=== PATIENT | female | born 1965 | race Caucasian/White ===

== ENCOUNTER 2023-09-07 15:12 | Emergency (ER) | payer OTHER, SELFPAY ==
[2023-09-07 15:24] VITALS: BP 130/83; PULSE 90; RESP 18; TEMP 36.2; O2SAT 100; BMI 29.6
--- NOTE | 2023-09-07 15:29 | CRLHL7_ITS ---
For Patients: As a result of the Century Cures Act, medical imaging exams and procedure reports are released immediately into your electronic medical record. You may view this report before your referring provider. If you have questions, please contact your health care provider. INDICATION: Right lower extremity pain for 2 weeks with no known injury COMPARISON: None. TECHNIQUE: Chapman-scale, color, and duplex Doppler imaging of the examined veins. Compression and augmentation attempted where anatomically and clinically feasible. FINDINGS: Laterality: Right Examined veins: Common femoral, femoral, popliteal, peroneal, posterior tibial Greater saphenous The examined veins are patent with normal color Doppler flow and a normal venous waveform on duplex Doppler. Where possible, there is normal compression and normal augmentation of flow. The left common femoral vein was sampled for comparison and is normal. No waveform abnormalities to suggest central occlusion. IMPRESSION: No deep vein thrombosis in the right leg. Dictated by Tara Conti MD @ 09/07/2023 4:35:02 PM (Electronically Signed)
--- NOTE | 2023-09-07 16:29 | ED_ITS ---
HPI - General Adult General Chief complaint: Extremity Pain/Injury, Lower Stated complaint: Possible blood clot R leg Time Seen by Provider: 09/07/23 15:20 History of Present Illness HPI narrative: This 58-year-old female comes in reporting pain in the lateral aspect of her right lower leg. The pain is distinctly there when pressing on this area but otherwise absent. She is able to ambulate without any pain and does not have any pain when dorsiflexing her ankle and firing the muscles involved in this area. She does not has a history of blood clot but comes here wondering if this may be an explanation for her pain. She does not report any injury event or strenuous activity. She states that this pain is persistent at night and causing trouble with her sleep. She does have a history of rheumatoid arthritis and is taking Plaquenil and alexandr I will. Related Data Previous Rx's Medication Instructions Recorded cyclobenzaprine 10 mg tablet 10 mg PO TID #15 tabs 09/07/23 ketorolac 10 mg tablet 10 mg PO Q8H 5 days #15 tabs 09/07/23 methylprednisolone 4 mg tablets in See Rx Instructions PO .COMPLEX 09/07/23 a dose pack (Medrol (Kirby)) #21 ea Allergies Allergy/AdvReac Type Severity Reaction Status Date / Time No Known Drug Allergies Allergy Verified 09/07/23 15:26 Review of Systems Status of ROS: Reports: 10 or more systems reviewed and unremarkable except as noted in History and below Narrative: Constitutional: No fevers, no weight gain or loss. Eyes: No discharge. No vision changes. HENT: No congestion, no sore throat, no ear pain. Cardiovascular: No chest pain, no palpitations. Respiratory: No shortness of breath, no wheezes, no cough. Gastrointestinal: No abdominal pain, no vomiting, no diarrhea. Genitourinary: No dysuria, no hematuria. Musculoskeletal: Normal range of motion. Pain on the lateral aspect of her right lower leg as described above. Skin: No rashes, no pruritis. Neurological: No dizziness, weakness, sensory change, speech change. Endo/Heme/Allergies: No bruising or bleeding. No polydipsia. Pysch: no suicidality, no anxiety, no insomnia. All other systems reviewed and are negative. Exam Narrative: Exam Narrative: Constitutional: Well-developed, well-nourished, no acute distress. HEENT: Normocephalic, atraumatic. Neck: Normal range of motion. Nontender. Supple. Heart: Regular. No murmurs. Normal rate. Intact distal pulses. Lungs: Clear to auscultation. No chest discomfort. No wheezes, rhonchi, or rales. Abdomen: Normal bowel sounds. Nontender. No rebound tenderness. Genitalia: Deferred. Back: No midline tenderness. Normal range of motion. Extremities: Normal range of motion. No injury. Right lower extremity has tenderness when palpating along the lateral aspect between the knee and ankle. There is no sign of swelling or skin discoloration. She does not have any pain when dorsiflexing her ankle against resistance. Skin: Intact. No rash. Warm. No erythema or pallor. Neurologic: No altered sensation. No weakness. Alert and oriented. Psychiatric: No suicidality. No anxiety or depression. No insomnia. Nursing notes and vitals signs are reviewed. Const: Vital Signs, click to edit/add: Vital Signs - 24 hr 09/07/23 15:24 Temperature 97.2 F L Pulse Rate [Pulse Oximeter] 90 Respiratory Rate 18 Blood Pressure [Ri t Upper Arm] 130/83 Pulse Oximetry 100 Oxygen Delivery Me thod Room Air Course Vital Signs Vital signs: Initial Vital Signs Temperature 97.2 F L 09/07/23 15:24 Temperature Source Temporal Artery Scan 09/07/23 15:24 Pulse Rate 90 09/07/23 15:24 Respiratory Rate 18 09/07/23 15:24 Blood Pressure 130/83 09/07/23 15:24 Blood Pressure Mean 98 09/07/23 15:24 Pulse Oximetry 100 09/07/23 15:24 Oxygen Delivery Method Room Air 09/07/23 15:24 Vital Signs Temperature 97.2 F L 09/07/23 15:24 Pulse Rate 90 09/07/23 15:24 Respiratory Rate 18 09/07/23 15:24 Blood Pressure 130/83 09/07/23 15:24 Pulse Oximetry 100 09/07/23 15:24 Oxygen Delivery Method Room Air 09/07/23 15:24 Temperature 97.2 F L 09/07/23 15:24 Pulse Rate 90 09/07/23 15:24 Respiratory Rate 18 09/07/23 15:24 Blood Pressure 130/83 09/07/23 15:24 Pulse Oximetry 100 09/07/23 15:24 Oxygen Delivery Method Room Air 09/07/23 15:24 Medical Decision Making MDM Narrative Medical decision making narrative: This patient comes in with pain in her right lower extremity as described above. An ultrasound is obtained and is negative for deep venous thrombosis. This was reassuring to the patient. The patient did not have any injury event or overuse activities that explain this pain. She does have some low back pain but it does not radiate down her leg. The pain is isolated in her right lateral lower leg and is absent except when pressing in this area or at night when sleeping. She does have rheumatoid arthritis and is taking alexandr L and Plaquenil. She may have some flare-up of some rheumatologic condition. I did discuss other labs or imaging options which were declined in a process of shared decision making. The patient did received prescriptions for Toradol, Flexeril, and Medrol Dosepak. Discharge Plan Discharge Clinical Impression: Acute leg pain Patient Disposition: Home, Self-Care Condition: Stable Additional Instructions: Take medications as needed and indicated. Follow up with MD or return if worsening. Prescriptions: New cyclobenzaprine 10 mg tablet 10 mg PO TID Qty: 15 0RF ketorolac 10 mg tablet 10 mg PO Q8H 5 Days Qty: 15 0RF methylprednisolone [Medrol (Kirby)] 4 mg tablets,dose pack See Rx Instructions .ROUTE .COMPLEX Qty: 21 0RF Rx Instructions: orally per package directions Follow Up/Referrals: Andreia Pires MD [Primary Care Provider] - Stand Alone Forms: [employer] Info Instructions
== END 2023-09-07 16:57 | disposition home or self-care (01) ==
LOC: ED 16:54
PROVIDERS: Emergency Provider Emergency Medicine Emergency Medical Services; PCP Family Medicine
DX: M79.604 Pain in right leg (principal)
CPT/HCPCS: 93971; 99284

== ENCOUNTER 2025-06-25 06:49 | Emergency (ER) | payer OTHER, SELFPAY ==
--- OUTSIDE RECORDS SUMMARY | 2012-01-15 04:53 | XMS_ITS | Continuity of Care Document ---
Author Organization [facility] Address [address] [address] [place] [address] Phone Care Team Providers Care Pitch Gatherer Name Role Phone Unavailable Unavailable Unavailable Allergies, Adverse Reactions, Alerts Substance Reaction Status Criticality cefprozil swelling, rash Active No Informatio n Medications Medication Instructions Dosage Effective Dates (start - stop) Status Comments ranitidine 150 mg Tab take 1 tablet (150 MG) by ORAL route every day - Active Prevacid 15 mg Cap take 1 capsule (15MG ) by oral route every day before a meal - Active levothyroxine 112 mcg Tab take 1 tablet (112MCG) by oral route every day 112 MCG - Active Procedures Procedure Date Offic/outpt E&m [facility] Routine Serum Collection [id number] Advance Directives Directive Yes / No Effective Date File Name No Information Encounters Encounter Description Practice Location Reason(s) For Visit Diagnoses Date Provider Providers Copied on Encounter [facility], [address] [address], [place], [id number], tel:[phone] [employer] No Information 2 No Information Offic/outpt E&m [facility], [address] [address], [place], [id number], tel:[phone] [facility] Abdominal pain (chief complaint) Heartburn (chief complaint) RUQ PainAbn Blood Chemistry Nec 2 No Information Referring Provider: Laura Reyes MD M, [address] [place], [address]. tel:[phone] Family History Family Member Type Diagnosis Age At Onset First degree family history Problem (finding) No Family history of No history of Colon Polyps First degree family history Problem (finding) No history of Cancer, colon First degree family history Problem (finding) alcoholism Father Problem (finding) Cancer - stoma ch, throat, esophageal First degree family history Problem (finding) No history of Crohn's First degree family history Problem (finding) No history of Ulcerative Colitis Payers Payer name Insurance type Covered republican ID Authorkeya vivas(s) [employer] [id number] Social History Type Description Quantity Date Captured Comments Sex Female Smoking Status No Information Chief Complaint And Reason For Visit No Information Reason For Referral Reason For Referral No Information History Of Present Illness Encounter Date Complaint History Of Prese nt Illness No Information Functional Status Date Functional Assessmen t No Information Instructions Date Instruction Additional Infor mation No Information Assessments Type Assessment Date No Information Patient Care Teams Name Effective Dates (start - stop) Status Members No Information
[2025-06-25] VITALS (12 sets, daily range): BP systolic 108–124; BP diastolic 59–87; PULSE 64–87; RESP 16; TEMP 36.6; O2SAT 92–98; BMI 28.4
--- OUTSIDE RECORDS SUMMARY | 2025-06-25 06:51 | XMS_ITS | CCD ---
Author Name Interface, [id number] Address [address] [address] [facility] Address [address] [address] Reason for Visit Social History
--- OUTSIDE RECORDS SUMMARY | 2025-06-25 06:51 | XMS_ITS | Clinical Summary ---
Author Organization [facility] Address [address], [place] [address] Care Team Providers Care Audit Specialist Name Role Phone Unassigned, Provider Primary Care Provider Unava ilable Source Comments You are receiving this document as you are listed as the primary care provider,follow-up provider, or the patient has been referred to you for consultation.This is in compliance with the Medicare andSelect Medical [facility] Hospitalcaid EHR Incentive Program,which states Providers who transition their patient to another setting of careor provider of care or refers their patient to another provider of care shouldprovide summary care record for each transition of care or referral. [facility] Allergies Active Allergy Reactions Criticality Noted Date Comments Cefprozil Hives High 03/13/2014 Medications fenofibrate (TRICOR) 145 MG tablet Take 1 Tab by mouth daily at bedtime. Active gemfibrozil (LOPID) 600 MG tablet Take 600 mg by mouth daily. 06/18/2017 Active levothyroxine (SYNTHROID) 112 MCG tablet TK 1 T PO QD 0 01/19/2018 Active raNITIdine (ZANTAC) 150 MG tablet Take 150 mg by mouth. 10/20/2012 Active venlafaxine (EFFEXORXR) 37.5 MG 24 hour release capsule Take by mouth. 10/25/2017 Active Active Problems No known active problems Social History Tobacco Use Types Packs/Day Years Used Date Smoking Tobacco: Never Assessed Comments Unknown Sex and Gender Information Value Date Recorded Sex Assigned at Not on file Legal Sex Female 7:17 AM CDT Gender Identity Not on file Sexual Orientation Not on file Plan of Treatment Health Maintenance Due Date Last Done Comments Hep C Screening (Preventive Services) 1963 HIV Screening (Preventive Services) 1979 Adult Preventive Visit 1981 Cholesterol 2008 Cervical Cancer Screening Due 04/20/2012 04/19/2012 Pneumococcal Vaccine 50+ Yrs (1 of 1 - PCV) 2013 Colon Cancer Screening Plan Due 03/15/2014 03/14/2014 Mammogram 09/22/2014 09/22/2013 DTaP/Tdap/Td Vaccine (3 - Tdap) 02/19/2025 02/19/2015, 01/07/2007, 06/04/2005, Additional history exists COVID-19 Vaccine (3 - season) 2025 01/29/2021, 01/08/2021 Influenza Vaccine (#1) 2025 07/04/2020 RSV Vaccine (1 - 1-dose 75+ series) 2038 Zoster/Shingles Vaccine Completed 11/05/2020, 07/04 HepA Vaccine Aged Out No longer eligi ble based on patient's age to complete this topic HepB Vaccine Aged Out No longer eligi ble based on patient's age to complete this topic Hib Vaccine Aged Out No longer eligi ble based on patient's age to complete this topic IPV (Polio) Vaccine Aged Out No longe r eligible based on patient's age to complete this topic MCV4 Vaccine Aged Out No longer eligi ble based on patient's age to complete this topic Meningococcal B Vaccine Aged Out No l onger eligible based on patient's age to complete this topic Insurance FULLY INSURED FULLY INSURED Care Teams Audit Specialist Relationship Specialty Start Date End Date Unassigned, Provider [address] [place] [address] PCP - General 06/27/01
--- OUTSIDE RECORDS SUMMARY | 2025-06-25 06:51 | XMS_ITS | Clinical Summary ---
Author Organization [facility] Address [facility] [place] [address] Care Team Providers Care Microsoft Dynamics Developer Name Role Phone Gisela Chicas MD Unavailable Andreia Pires MD Primary Care Provider Allergies Active Allergy Reactions Criticality Noted Date Comments Cefprozil Rash,Edema,Hives High 03/16/2006 Medications calcium carbonate-vitamin D3, 600 mg-400 unit, 600 mg(1,500mg) -400 unit tablet Take 2 tablets by mouth 2 times daily with meals. 200 tablet 4 02/28/20 19 Active hydroxychloroquine (PLAQUENIL) 200 mg tablet Take 1 tablet by mouth 2 times daily. 0 06/15/20 19 Active etanercept (ENBREL SURECLICK) 50 mg/mL (1 mL) pen injector Inject 1 mL subcutaneous once weekly. 0 11/15/19 21 Active estradioL (VAGIFEM) 10 mcg tab vaginal tablet TAKE 1 TABLET IN THE VAGINA TWICE WEEKLY 09/26/20 21 Active fluocinonide 0.05 TOPICAL (LIDEX) 0.05 % external solutionIndication s:Seborrheic dermatitis Apply topically to affected area(s) 2 times daily. Use on the scalp as needed for itching. 60 mL 5 01/21/20 22 Active triamcinolone (ARISTOCORT; KENALOG) 0.1 % creamIndications:E czema, unspecified type Apply topically to affected area(s) two times daily. 45 g 2 07/23/20 22 Active fluocinonide 0.05% topical (LIDEX) 0.05 % creamIndications:E czema of hand Apply topically to affected area(s) two times daily. 30 g 1 10/14/19 24 Active famotidine (PEPCID) 40 mg tabletIndications: Gastroesophageal reflux disease, unspecified whether esophagitis present Take 1 Tablet (40 mg) by mouth at bedtime. 90 Tablet 3 10/11/19 25 Active levothyroxine (SYNTHROID) 112 mcg tabletIndications: Hypothyroidism, unspecified type Take 1 Tablet (112 mcg) by mouth once daily. 90 Tablet 3 10/11/19 25 Active rosuvastatin (CRESTOR) 10 mg tabletIndications: Hyperlipidemia, unspecified hyperlipidemia type Take 1 Tablet (10 mg) by mouth at bedtime. 90 Tablet 3 10/11/19 25 Active venlafaxine (EFFEXOR XR) 37.5 mg Extended-Release capsuleIndications :Hot flashes Take 1 Capsule (37.5 mg) by mouth once daily with a meal. TAKE WITH FOOD IF GI UPSET OCCURS. 90 Capsule 3 10/11/19 25 Active Hospital, Clinic, or Other Facility Administered Medication Ordered Dose Route Frequency Start Date End Date Status cyanocobalamin (VITAMIN B12) 1,000 mcg/mL injection 1,000 mcgIndications:B12 deficiency 1000 mcg IM Q 4 WEEKS (28 DAYS) 08/28/2024 07/29/2025 Active Active Problems Problem Noted Date Diagnosed Date Lichen sclerosus et atrophicus of the vulva 04/2021 Skin cancer 06/19/2020 Overview (01/22/2022): 01/20/2022, right lateral upper arm, superficial BCC, margins negative, Follow up 07/18. 07/02/21: Left medial suprabrow, nBCC - 09/08/2021 Dr. Abbey ELLIOTT 07/02/21: Left lateral canthus, superficial and nodular BCC - 09/08/2021 Dr. Abbey ELLIOTT Right Forehead, invasive SCC: Mohs 01/20/2021 Abbey 06/18/20, left jewish, nBCC: MOHS 07/23/2020 Abbey Rheumatoid arthritis involvi ng both hands with negative rheumatoid factor 08/26/2019 Esophageal dysmotility 07/29/2016 Avascular necrosis of bone of left hip 5 Overview (01/03/2016): Was actually transient osteoporosis. Hypothyroid 09/22/2013 Hepatic steatosis 11/29/2012 MRSA (methicillin resistant staph aureus) cultur e positive 11/28/2012 Overview (11/28/2012): Isolated from boil 10/2012 Lumbar facet arthropathy 10/20/2012 Dysthymic disorder 07/12/2012 T6-7 and T7-8 disk bulge. 07/11/2012 L5-S1 DDD 07/11/2012 Biliary dyskinesia 02/04/2012 Unspecified hypothyroidism 03/16/2007 Esophageal reflux 03/09/2007 Overview (01/14/2011): EGD 12/2010 normal Obesity, unspecified 12/29/2006 HISTORY OF LEFT GREATER THAN RIGHT LEG EDEMA Resolved Problems Problem Noted Date Diagnosed Date Resolved Date Fracture of coccyx 07/11/2012 3 Ingrowing nail 08/11/2007 01/13/2013 Abnormal maternal glucose to lerance, complicating , childbirth, or the puerperium, unspecified as to episode of care 12/29/2006 01/13/2013 Encounters Date Type Department Care Team Description 06/21/2025 8:15 AM CDT Nurse/Clinic Staff Only [facility] [address] [place] [address] Immunization/Injection (B-12 INJECTION ) 06/21/2025 Travel 05/21/2025 8:15 AM CDT Nurse/Clinic Staff Only [facility] [address] [place] [address] Immunization/Injection (B-12 INJECTION) 05/21/2025 Travel from Last 3 Months Immunizations Immunization Administration Dates Next Due COVID-19 vaccine ([employer] 30mcg/0.3mL) 12YO+ YINKA-SUCROSE PF MDV 02/27/2022 COVID-19 vaccine ([employer] 30mcg/0.3mL) PF MDMelva 10/05/2021,01/29/2021,01/08/2021 INFLUENZA, IIV3 PF (AGE >= 6 MO) 10/11/2024 Influenza, IIV4 07/01/2022,08/20/2021,07/04/2020 Influenza,CCIIV4 PRESERV FREE 07/08/2023 Pneumococcal Conj 20-valent (Prevnar 20) 025 Td (Age >=7 Years) 06/04/2005 Tdap 02/19/2015,01/07/2007 Zoster (Shingrix-RZV, recombinant) 11/05/2020, Family History Medical History Relation Name Comments Cancer Father stomach, throat and esophageal Hypertension Maternal Grandfather Cancer Other paternal cousin has stage 4 kidney cancer Cancer-breast No Family History Relation Name Status Comments Brother Alive Daughter Alive x2 Father (Age 62 yrs) cancer s Maternal Grandfather Maternal Grandmother Mother Alive Other Paternal Grandfather Paternal Grandmother Sister 1 Alive Sister 2 Alive Son Alive x1 Social History Tobacco Use Types Packs/Day Years Used Date Smoking Tobacco: Former Cigarettes 0.5 13.9 0 02/03/1982 - 12/27/1995 Smokeless Tobacco: Never Tobacco Cessation:Counseling Given: Not Answered Alcohol Use Standard Drinks/Week Comments Yes 0 (1 standard drink = 0.6 oz pure alcohol) about 1-3 drinks a couple times a month PHQ-2 Answer Date Recorded PHQ-2 TOTAL SCORE 0 10/11/2024 Social Connections Answer Date Recorded Do you often feel lonely or isolated from those around you? 0 10/11/2024 Alcohol Use Answer Date Recorded How often do you have a drink containing alcohol ? 2 02/27/2022 How many drinks containing a lcohol do you have on a typical day when you are drinking? 0 02/27/2022 How often do you have five or more drinks on one occasion? 0 02/27/2022 Financial Resource Strain Answer Date R ecorded Difficulty of Paying Living Expenses 3 10/11/2024 Difficulty of Paying Living Expenses Not on file 10/11/2024 Food Insecurity Answer Date Recorded Do you worry your food will run out before you are able to buy more? 1 10/11/2024 Transportation Needs Answer Date Record ed Does lack of transportation keep you from medica l appointments? 1 10/11/2024 Does lack of transportation keep you from work, meetings or getting things that you need? 1 10/11/2024 Housing Stability Answer Date Recorded What is your housing situation today? 1 10/11/2024 Utilities Answer Date Recorded Do you have trouble paying f or utilities (for example, heat, electricity, water, phone)? 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 file Not on file Not on f ile [employer]IEF [employer] Not on file Not on file Not on file Obstetrics History Para Term AB IAB SAB Ectopic Multiple Livin g Live Births 3 3 3 0 0 0 0 0 0 3 3 Date Outcome GA Total Labor Labor/2nd/3rd Weight Sex Type Anes PTL Genesis A1 A5 Name Clin 08/23 Term 38w 0d 19h 00m/ 4.24 kg (9 lb 5.6 oz) M Vag Living Walter 05/11 Term 40w 0d 15h 00m/ 3.7 kg (8 lb 2.6 oz) F Vag Living Alka 08/02 Term 38w 0d 20h 00m/ 4.05 kg (8 lb 15 oz) F Vag Living Kandice Last Filed Vital Signs Vital Sign Reading Time Taken Comments Blood Pressure 109/70 12/08/2024 9:11 AM CDT Pulse 87 12/08/2024 9:11 AM CDT Temperature 36.2 C (97.2 F) 02/27/2022 3:57 PM CDT Respiratory Rate 16 10/07/2019 10:5 8 AM MANAGER SALES SUPPORT Oxygen Saturation 97% 12/08/2024 9:11 AM CDT Inhaled Oxygen Concentration - - Weight 89.3 kg (196 lb 12.8 oz) 12/08/2024 9:11 AM CDT Height 168.9 cm (5' 6.5) 10/11/2024 2:37 PM MANAGER SALES SUPPORT Body Mass Index 31.29 10/11/2024 2:37 PM MANAGER SALES SUPPORT Plan of Treatment Upcoming Encounters Date Type Department Care Team (Late st Contact Info) Description 07/23/2025 8:15 AM CDT Nurse/Clinic Staff Only [facility] [address] [place] [address] 08/27/2025 8:15 AM MANAGER SALES SUPPORT Nurse/Clinic Staff Only [facility] [address] [place] [address] [address] Health Maintenance Due Date Last Done Comments RSV vaccine for adults or (1 - Risk 60-74 years 1-dose series) 2023 Colonoscopy through age 75 03/14/2024 03/14/2014, Tetanus booster 02/19/2025 02/19/2015, 12/26, 06/04/2005 COVID-19 vaccine series ( season) 2025 07/08/2023, 02/27/2022, 10/05/2021, Additional history exists Influenza Vaccine (#1) 2025 , 07/08/2023, 07/01/2022, Additional history exists BMI (ht and wt on same day) for age 18+ 10/11/2025 10/11/2024, 08/10/2022, 10/16/2021, Additional history exists Depression screening for age 12+ 10/11/2025 10/11/2024, 10/14/2023, 08/10/2022, Additional history exists Pap test for age 21-65 11/20/2025 , 11/20/2020, 01/03/2016, Additional history exists Mammogram for age 45-75 12/13/2025 12/14/19 25, 10/14/2023, 09/03/2022, Additional history exists Lipids for age 45-75 10/11/2029 10/11/2024, 10/14/2023, 09/23/2022, Additional history exists Hepatitis C screening for age 18-79 Completed 11/29/2012 Zoster (shingles) series for age 50+ Completed 11/05/2020, 07/04/2020 HIV for age 15-65 Completed 10/14/2023 Pneumococcal series for age 50+ Completed 10/11/2024 Hepatitis B series for 19+ Aged Out N o longer eligible based on patient's age to complete this topic Procedures Procedure Name Priority Date/Time Associated Diagnosis Comments XR MAMMO BILAT DIAGNOSTIC Routine 12/13/2024 2:17 PM CDT Breast lump on right side at 2 o'clock position LIPID PANEL W REFLEX MEASURED LDL Routine 10/11/2024 3:31 PM MANAGER SALES SUPPORT Hyperlipidemia, unspecified hyperlipidemia type ANTI HIV 1/2 Routine 10/14/2023 10:57 AM MANAGER SALES SUPPORT Screening for HIV (human immunodeficiency virus) BACKEND JAVA DEVELOPER THIN PREP PAP SCREEN IMAGED Routine 11/20/2020 5:40 PM MANAGER SALES SUPPORT Cervical cancer screening SCAN-COLONOSCOPY 03/14/2014 12:0 0 AM CDT ANTI HCV Routine 11/29/2012 4:50 PM MANAGER SALES SUPPORT Elevated ALT measurement Elevated AST (SGOT) from Last 3 Months or Most Recently Relevant to Health Maintenance Results * XR MAMMO BILAT DIAGNOSTIC (12/13/2024 2:17 PM CDT) Anatomical Region Laterality Modality BREASTS, Breast Left, Breast Right Bilateral Mammography 12/13/2024 2:38 PM CDT Impressions 12/13/2024 3:14 PM CDT Normal breast tissue. No evidence of malignancy. RECOMMENDATIONS: Routine screening mammography. BI-RADS Category 1: Negative Dictated by: Kishore Lambert MD @12/13/2024 2:38:47 PM /sp PATIENTS: You will also receive a letter with your examination results in an easy to read format. If you have questions about your results, please contact your referring provider. Narrative 12/13/2024 3:14 PM CDT As a result of the 21st Century Cures Act, medical imaging exams and procedure reports are released immediately into your electronic medical record. You may view this report before your referring provider. If you have questions, please contact your health care provider. BILATERAL BREAST MAMMOGRAM DIGITAL DIAGNOSTIC WITH COMPUTER-AIDED DETECTION AND TOMOSYNTHESIS 12/13/2024 RIGHT BREAST ULTRASOUND 12/13/2024 CLINICAL HISTORY: RIGHT breast lump. COMPARISON: 10/14/2023, 09/03/2022, 08/31/2022, 08/19/2021. TECHNIQUE: Digital BILATERAL mammogram in four projections with computer-aided detection. Tomosynthesis was used in this interpretation. Real-time ultrasound imaging of RIGHT breast with imaging documentation. BREAST COMPOSITION: There are scattered areas of fibroglandular density. FINDINGS: 3D CC/MLO BILATERAL mammogram images submitted. No suspicious mass or architectural distortion. No suspicious calcifications or adenopathy. Targeted RIGHT breast ultrasound performed at 3 o'clock, 4 cm from the nipple. Normal breast tissue is present. No fibrocystic change or mass. us Santy Garber MD MAMMO Final Result * (ABNORMAL) LIPID PANEL W REFLEX MEASURED LDL (10/11/2024 3:31 PM MANAGER SALES SUPPORT) Pathologist [facility] CHOLESTEROL, TOTAL 121 <200 mg/dL [employer] [facility] [employer] [facility] HDL CHOLESTEROL 35(L) > OR = 50 mg/dL [employer] TRIGLYCERIDES 217(H) <150 mg/dL [facility] [employer] Comment: If a non-fasting specimen was collected, consider repeat triglyceride testing on a fasting specimen if clinically indicated. Grace et al. J. of Clin. Lipidol. 2015;9:129-169. LDL-CHOLESTEROL 57 mg/dL (calc) [employer] Comment: Reference range: <100 Desirable range <100 mg/dL for primary prevention; <70 mg/dL for patients with CHD or diabetic patients with > or = 2 CHD risk factors. LDL-C is now calculated using the Rober-Tania calculation, which is a validated novel method providing better accuracy than the Friedewald equation in the estimation of LDL-C. Rober GIBSON et al. GINNY. 2013;310(19): 5195-3305 (http://education.OnKure/faq/TXB213) CHOL/HDLC RATIO 3.5 <5.0 (calc) [facility] NON HDL CHOLESTEROL 86 <130 mg/dL (calc) [employer] [facility] [employer] [facility] Comment: For patients with diabetes plus 1 major ASCVD risk factor, treating to a non-HDL-C goal of <100 mg/dL (LDL-C of <70 mg/dL) is considered a therapeutic option. Blood BLOOD SPECIMEN / Unknown 10/11/2024 3:31 PM MANAGER SALES SUPPORT 10/11/2024 3:31 PM MANAGER SALES SUPPORT Andreia Pires MD CHEMISTRY Final R esult Performing Organization Address City/[facility]/ZIP Co de Phone Number [employer] [facility] [place] [address] [place] [address], [facility] [address] [place] [address] * ANTI HIV 1/2 [17095.0] (10/14/2023 10:57 AM MANAGER SALES SUPPORT) HIV-1/HIV-2 SCREEN Non-Reacti ve Non-Reacti ve 10/14/2023 10:35 PM MANAGER SALES SUPPORT [facility] Comment:HIV-1 p24 and HIV-1/ HIV-2 Ab Not Detected. Blood BLOOD SPECIMEN / Unknown Venipuncture / Unknown 10/14/2023 10:57 AM MANAGER SALES SUPPORT 10/14/2023 10:57 AM MANAGER SALES SUPPORT Andreia Pires MD SEND OUTS Final R esult Performing Organization Address City/[facility]/ZIP Co de Phone Number [facility] [address] [place] [address], [place] * BACKEND JAVA DEVELOPER THIN PREP PAP SCREEN IMAGED (11/20/2020 5:40 PM MANAGER SALES SUPPORT) Case Report Gynecologic Cytology Report Case: [id number] Authorizing Provider: Andreia Pires MD Collected: 11/20/2020 1740 Ordering Location: [facility] Received: 11/20/2020 1758 Clinic First Screen: Jonny Weathers Pathologist: Loreta Augustine MD Specimen: BACKEND JAVA DEVELOPER ThinPrep Vial Screening, Cervical 11/29/2020 3:22 PM MANAGER SALES SUPPORT [facility] INTERPRETATION/ RESULT NEGATIVE FOR INTRAEPITHELIAL LESION OR MALIGNANCY (NIL) (none) 11/29/2020 3:22 PM MANAGER SALES SUPPORT [facility] at 1522 MANAGER SALES SUPPORT OTHER NON-NEOPLASTIC FINDING(S) Reactive cellular changes associated with inflammation/repa ir 11/29/2020 3:22 PM MANAGER SALES SUPPORT [facility] SPECIMEN ADEQUACY Satisfactory for evaluation Endocervical cells cannot be evaluated due to severe atrophy 11/29/2020 3:22 PM MANAGER SALES SUPPORT [facility] HPV REQUEST HPV and PAP 11/29/2020 3:22 PM MANAGER SALES SUPPORT [facility] Date of LMP 2013 11/29/2020 3:22 PM MANAGER SALES SUPPORT [facility] Last Pap Date 01/03/16 11/29/2020 3:22 PM MANAGER SALES SUPPORT [facility] Last Pap Result NIL 3:22 PM MANAGER SALES SUPPORT [facility] Abnormal Pap or Deshler Bx in last 5 years No 11/29/2020 3:22 PM MANAGER SALES SUPPORT [facility] Menstrual Status Postmenopausal 11/29/2020 3:22 PM MANAGER SALES SUPPORT [facility] Deshler Bx Done Today No 11/29/2020 3:22 PM MANAGER SALES SUPPORT [facility] Additional Information None given 11/29/2020 3:22 PM MANAGER SALES SUPPORT [facility] Comment: Cytology is screened at [facility] - [address], [place] [address] and [facility] - [address], [place] [address] and [facility] - [address] [place] [address] Interpreted at [facility] - [address], [place] [address] Automated Review Successful 11/29/2020 3:22 PM MANAGER SALES SUPPORT [facility] Comment:Specimen processed s uccessfully by automated vmware systems administrator device, ThinPrep Imaging System, [facility] ANCILLARY TESTING BACKEND JAVA DEVELOPER HPV Ordered, Please see separate report 11/29/2020 3:22 PM MANAGER SALES SUPPORT [facility] Note The pap test is a screening technique, not a diagnostic procedure. It is used primarily to screen for squamous cancers and precursor lesions. Published studies have shown that it is subject to both false negative and false positive results. The pap test should not be used as the sole means to diagnose or exclude pre-malignant and malignant lesions. 11/29/2020 3:22 PM MANAGER SALES SUPPORT [facility] Other (Cervical) Non-Blood / Unknown 11/20/2020 5:40 PM MANAGER SALES SUPPORT 11/20/2020 5:58 PM MANAGER SALES SUPPORT us Andreia Pires MD PATHOLOGY/CYTOLOGY Nasima l Result [facility] [address] [place] [address], [place] * SCAN-COLONOSCOPY (03/14/2014 12:00 AM CDT) Narrative 03/14/2014 12:00 AM CDT Procedure Note Scanner - 03/14/2014 12:00 AM CDT us Scanner OTHER Final Result * ANTI HCV (11/29/2012 4:50 PM MANAGER SALES SUPPORT) ANTI HCV Non-reacti ve [facility] Blood specimen (specimen) BLOOD SPECIMEN / Unknown 11/29/2012 4:50 PM MANAGER SALES SUPPORT 11/29/2012 4:49 PM MANAGER SALES SUPPORT us India Fernandez MD SEND OUTS Final Result [facility] INTERNAL ZIP [id number] [place] [address] from Last 3 Months or Most Recently Relevant to Health Maintenance Insurance [facility] [employer] [facility] [employer] Advance Directives * Full Code (Latest Code Status on File) Date Activated Date Inactivated Comments 02/04/2012 11:17 AM 02/04/2012 9:56 PM Care Teams Microsoft Dynamics Developer Relationship Specialty Start Date End Date Andreia Pires MD [address] [facility] [address] [place] [address] PCP - General Family Practice 11/02/13 Gisela Chicas MD [address] [facility] [address] [place] [address] Gastroenterology Gastroenterology 01/04/12
[2025-06-25 07:07] LABS: Appearance Urine Clear (Clear)
--- NOTE | 2025-06-25 07:22 | ED.GENADULT ---
HPI - General Adult General Chief complaint: Abdominal Pain <Nida Roberts MD - Last Filed: 06/26/25 00:02> Stated complaint: abdominal pain <Nida Roberts MD - Last Filed: 06/26/25 00:02> Time Seen by Provider: 06/25/25 06:56 <Nida Roberts MD - Last Filed: 06/26/25 00:02> Source: patient <Nida Roberts MD - Last Filed: 06/26/25 00:02> Mode of arrival: ambulatory <Nida Roberts MD - Last Filed: 06/26/25 00:02> Limitations: no limitations <Nida Roberts MD - Last Filed: 06/26/25 00:02> History of Present Illness HPI narrative: 60-year-old female presents with 24 hours of abdominal pain in the right lower quadrant that does radiate to the right flank area somewhat. No injury or trauma. Normal bowel movements, last yesterday afternoon. Took some ibuprofen, 600 mg yesterday afternoon with some temporary relief. No prior history of similar symptoms. She has had a prior cholecystectomy and does have a history of pelvic congestion syndrome which she has undergone blood vessel coiling for in the past, not recent. No history of DVT or PE. No dysuria, no history of kidney stones but does have a family history of them. No fever. No nausea or vomiting. No bloody stools. Not anticoagulated but she is immunocompromised due to treatment for rheumatoid arthritis. No history of bowel obstructions or pancreatitis. No recent alcohol ingestion. She does not smoke but does vape tobacco. No pelvic pain or gynecological changes. No hematuria noted. Past medical history is most notable for rheumatoid arthritis and hyperlipidemia. Home meds are levothyroxine rosuvastatin venlafaxine Enbrel Plaquenil and famotidine. Allergies to cefprozil. ROS is notable for the GI symptoms only, otherwise denies times 12 systems. <Nida Roberts MD - Last Filed: 06/26/25 00:02> Related Data Home medications: Home Medications ?Medication ?Instructions ?Recorded ?Confirmed famotidine 40 mg tablet 40 mg PO DAILY 06/25/25 06/25/25 hydroxychloroquine 200 mg tablet 200 mg PO Q12H 06/25/25 06/25/25 leflunomide 20 mg tablet 20 mg PO DAILY 06/25/25 06/25/25 levothyroxine 112 mcg tablet 112 mcg PO DAILY 06/25/25 06/25/25 rosuvastatin 10 mg tablet 10 mg PO QPM 06/25/25 06/25/25 venlafaxine 37.5 mg 37.5 mg PO DAILY 06/25/25 06/25/25 capsule,extended release 24 hr <Nida Roberts MD - Last Filed: 06/26/25 00:02> Allergies/adverse reactions: Allergies Allergy/AdvReac Type Severity Reaction Status Date / Time cefprozil (From Cefzil) Allergy Intermediate Rash Verified 06/25/25 07:03 <Nida Roberts MD - Last Filed: 06/26/25 00:02> PFSH PFSH Social History: Social History Smoking Status: Unknown if ever smoked Non-prescribed substance use: denies use <Nida Roberts MD - Last Filed: 06/26/25 00:02> Exam Const: Vital Signs, click to edit/add: Vital Signs - 24 hr 06/25/25 06:57 06/25/25 07:55 06/25/25 07:56 Temperature 97.8 F Pulse Rate 69 64 Pulse Rate [Pulse Oximeter] 85 Respiratory Rate 16 Blood Pressure 111/63 Blood Pressure [Ri ght Upper Arm] 124/87 Pulse Oximetry 98 98 [facility] 06/25/25 08:00 06/25/25 08:02 06/25/25 08:20 Temperature Pulse Rate 64 71 87 Pulse Rate [Pulse Oximeter] Respiratory Rate Blood Pressure 111/62 Blood Pressure [Ri ght Upper Arm] Pulse Oximetry 96 93 96 [facility] 06/25/25 08:21 06/25/25 08:30 06/25/25 08:32 Temperature Pulse Rate 70 68 64 Pulse Rate [Pulse Oximeter] Respiratory Rate Blood Pressure 112/65 Blood Pressure [Ri ght Upper Arm] Pulse Oximetry 98 95 96 [facility] 06/25/25 08:33 06/25/25 08:45 06/25/25 08:46 Temperature Pulse Rate 66 64 69 Pulse Rate [Pulse Oximeter] Respiratory Rate Blood Pressure 108/59 L Blood Pressure [Ri ght Upper Arm] Pulse Oximetry 94 95 92 Oxygen Delivery Me thod <Nida Roberts MD - Last Filed: 06/26/25 00:02> Vital Signs, click to edit/add: Vital Signs - 24 hr 06/25/25 06:57 06/25/25 07:55 06/25/25 07:56 Temperature 97.8 F Pulse Rate 69 64 Pulse Rate [Pulse Oximeter] 85 Respiratory Rate 16 Blood Pressure 111/63 Blood Pressure [Ri ght Upper Arm] 124/87 Pulse Oximetry 98 98 97 Oxygen Delivery Me thod Room Air 06/25/25 08:00 06/25/25 08:02 06/25/25 08:20 Temperature Pulse Rate 64 71 87 Pulse Rate [Pulse Oximeter] Respiratory Rate Blood Pressure 111/62 Blood Pressure [Ri ght Upper Arm] Pulse Oximetry 96 93 96 Oxygen Delivery Me thod 06/25/25 08:21 06/25/25 08:30 06/25/25 08:32 Temperature Pulse Rate 70 68 64 Pulse Rate [Pulse Oximeter] Respiratory Rate Blood Pressure 112/65 Blood Pressure [Ri ght Upper Arm] Pulse Oximetry 98 95 96 Oxygen Delivery Me thod 06/25/25 08:33 06/25/25 08:45 06/25/25 08:46 Temperature Pulse Rate 66 64 69 Pulse Rate [Pulse Oximeter] Respiratory Rate Blood Pressure 108/59 L Blood Pressure [Ri ght Upper Arm] Pulse Oximetry 94 95 92 Oxygen Delivery Me thod <Adia Wagner MD - Last Filed: 06/25/25 08:48> Documenting provider has reviewed patient's vital signs: yes <Nida Roberts MD - Last Filed: 06/26/25 00:02> Common normals: no apparent distress <Nida Roberts MD - Last Filed: 06/26/25 00:02> General appearance: cooperative and well kempt <Nida Roberts MD - Last Filed: 06/26/25 00:02> HENMT: Common normals: normocephalic, moist oral mucous membranes and oropharynx normal <MD Felisa Sandoval Last Filed: 06/26/25 00:02> Head and scalp: normocephalic <MD Felisa Sandoval Last Filed: 06/26/25 00:02> Face and sinus: normal facial exam <MD Felisa Sandoval Last Filed: 06/26/25 00:02> Throat: posterior oropharynx normal <MD Felisa Sandoval Last Filed: 06/26/25 00:02> Eye: Common normals: conjunctivae normal <MD Felisa Sandoval Last Filed: 06/26/25 00:02> General eye: normal appearance of both eyes <MD Felisa Sandoval Last Filed: 06/26/25 00:02> Conjunctiva: conjunctiva(e) normal <MD Felisa Sandoval Last Filed: 06/26/25 00:02> Neck & C-Spine: Common normals: full ROM <MD Felisa Sandoval Last Filed: 06/26/25 00:02> General: normal visual inspection <MD Felisa Sandoval Last Filed: 06/26/25 00:02> Resp: Common normals: normal respiratory effort, no use of accessory muscles and clear to auscultation bilaterally <MD Felisa Sandoval Last Filed: 06/26/25 00:02> Effort & inspection: able to speak in complete sentences <MD Felisa Sandoval Last Filed: 06/26/25 00:02> Auscultation: clear to auscultation bilaterally <MD Felisa Sandoval Last Filed: 06/26/25 00:02> Cardio: Common normals: regular rate, regular rhythm, S1 normal heart sound, S2 normal heart sound and no murmurs <MD Felisa Sandoval Last Filed: 06/26/25 00:02> Rate: regular rate <MD Felisa Sandoval Last Filed: 06/26/25 00:02> Rhythm: regular rhythm <MD Felisa Sandoval Last Filed: 06/26/25 00:02> Heart sounds: S1 normal and S2 normal <MD Felisa Sandoval Last Filed: 06/26/25 00:02> GI: Common normals: Normal to inspection, nondistended, normoactive bowel sounds present, soft to palpation, no hepatosplenomegaly and no masses <MD Felisa Sandoval Last Filed: 06/26/25 00:02> Palpation: soft and no hepatosplenomegaly <MD Felisa Sandoval Last Filed: 06/26/25 00:02> Other: Tender to palpation of the right lower quadrant. No rebound tenderness or guarding. No obvious mass. <MD Felisa Sandoval Last Filed: 06/26/25 00:02> : Common normals: no CVA tenderness <MD Felisa Sandoval Last Filed: 06/26/25 00:02> Bladder/kidney exam: no CVA tenderness <MD Felisa Sandoval Last Filed: 06/26/25 00:02> Back & Pelvis: Common normals: no CVA tenderness <MD Felisa Sandoval Last Filed: 06/26/25 00:02> Extremity: Common normals: normal to inspection, normal capillary refill and no pedal edema <MD Felisa Sandoval Last Filed: 06/26/25 00:02> Neuro: Speech: speech normal <MD Felisa Sandoval Last Filed: 06/26/25 00:02> Motor exam: strength 5/5 throughout <MD Felisa Sandoval Last Filed: 06/26/25 00:02> Psych: Appearance: well kempt <MD Felisa Sandoval Last Filed: 06/26/25 00:02> Attitude: engaged <MD Felisa Sandoval Last Filed: 06/26/25 00:02> Activity/motor behavior: appropriate eye contact <MD Felisa Sandoval Last Filed: 06/26/25 00:02> Attention/concentration: attention grossly intact <MD Felisa Sandoval Last Filed: 06/26/25 00:02> Memory/cognition: memory grossly intact <Nida Roberts MD - Last Filed: 06/26/25 00:02> Insight: insight good <Nida Roberts MD - Last Filed: 06/26/25 00:02> Judgement: judgment good <Nida Roberts MD - Last Filed: 06/26/25 00:02> Skin: Common normals: no rashes or lesions noted <Nida Roberts MD - Last Filed: 06/26/25 00:02> General skin exam: no rashes or lesions noted <Nida Roberts MD - Last Filed: 06/26/25 00:02> Course Course ED Course: 4-year-old female with right lower quadrant abdominal pain. Differential diagnosis including appendicitis, ureterolithiasis, ovarian cyst, torsion, pelvic infection, ischemic bowel, colitis, musculoskeletal etiology, pancreatitis, pyelonephritis, amongst many others. Will start with a urinalysis. If this contains blood, would be much more suspicious for kidney stone. Would then give Toradol and obtain a CT without IV contrast. If negative for blood, will give IV Dilaudid and Zofran, obtain CT of abdomen and pelvis with contrast. Anticipate handing over care to incoming day shift partner. <Nida Roberts MD - Last Filed: 06/26/25 00:02> Reevaluation(s) Reevaluation #1: I was asked to follow-up on the results of the workup for this patient. The her lab work was entirely unremarkable. Abdominal CT scan did not show any significant abnormalities. Appendix not visualized however no evidence of stranding or other evidence of inflammation noted. Patient does have a very large amount of colonic fecal burden of the ascending colon consistent with the location of her discomfort. <Adia Wagner MD - Last Filed: 06/25/25 08:48> Vital Signs Vital signs: Initial Vital Signs Temperature 97.8 F 06/25/25 06:57 Temperature Source Temporal Artery Scan 06/25/25 06:57 Pulse Rate 85 06/25/25 06:57 Respiratory Rate 16 06/25/25 06:57 Blood Pressure 124/87 06/25/25 06:57 Blood Pressure Mean 99 06/25/25 06:57 Blood Pressure Position Sitting 06/25/25 06:57 Pulse Oximetry 98 06/25/25 06:57 Oxygen Delivery Method Room Air 06/25/25 06:57 Vital Signs Temperature 97.8 F 06/25/25 06:57 Pulse Rate 85 06/25/25 06:57 Respiratory Rate 16 06/25/25 06:57 Blood Pressure 124/87 06/25/25 06:57 Pulse Oximetry 98 06/25/25 06:57 Oxygen Delivery Method Room Air 06/25/25 06:57 Temperature 97.8 F 06/25/25 06:57 Pulse Rate 69 06/25/25 08:46 Respiratory Rate 16 06/25/25 06:57 Blood Pressure 108/59 L 06/25/25 08:46 Pulse Oximetry 92 06/25/25 08:46 Oxygen Delivery Method Room Air 06/25/25 06:57 <Nida Roberts MD - Last Filed: 06/26/25 00:02> Initial Vital Signs Temperature 97.8 F 06/25/25 06:57 Temperature Source Temporal Artery Scan 06/25/25 06:57 Pulse Rate 85 06/25/25 06:57 Respiratory Rate 16 06/25/25 06:57 Blood Pressure 124/87 06/25/25 06:57 Blood Pressure Mean 99 06/25/25 06:57 Blood Pressure Position Sitting 06/25/25 06:57 Pulse Oximetry 98 06/25/25 06:57 Oxygen Delivery Method Room Air 06/25/25 06:57 Vital Signs Temperature 97.8 F 06/25/25 06:57 Pulse Rate 85 06/25/25 06:57 Respiratory Rate 16 06/25/25 06:57 Blood Pressure 124/87 06/25/25 06:57 Pulse Oximetry 98 06/25/25 06:57 Oxygen Delivery Method Room Air 06/25/25 06:57 Temperature 97.8 F 06/25/25 06:57 Pulse Rate 69 06/25/25 08:46 Respiratory Rate 16 06/25/25 06:57 Blood Pressure 108/59 L 06/25/25 08:46 Pulse Oximetry 92 06/25/25 08:46 Oxygen Delivery Method Room Air 06/25/25 06:57 <Adia Wagner MD - Last Filed: 06/25/25 08:48> Medications Administered Medications: Discontinued Medications Generic Name Dose Route Start Last Admin Trade Name Freq PRN Reason Stop Dose Admin Hydromorphone HCl 0.5 mg 06/25/25 07:33 06/25/25 07:51 Hydromorphone 0.5 Mg/0.5 Ml Inj IVP 06/25/25 07:34 0.5 mg ONCE ONE Administration Ondansetron HCl 4 mg 06/25/25 07:33 06/25/25 07:49 Ondansetron 2 Mg/Ml Inj IVP 06/25/25 07:34 4 mg ONCE ONE Administration <Nida Roberts MD - Last Filed: 06/26/25 00:02> Discontinued Medications Generic Name Dose Route Start Last Admin Trade Name Freq PRN Reason Stop Dose Admin Hydromorphone HCl 0.5 mg 06/25/25 07:33 06/25/25 07:51 Hydromorphone 0.5 Mg/0.5 Ml Inj IVP 06/25/25 07:34 0.5 mg ONCE ONE Administration Ondansetron HCl 4 mg 06/25/25 07:33 06/25/25 07:49 Ondansetron 2 Mg/Ml Inj IVP 06/25/25 07:34 4 mg ONCE ONE Administration <Adia Wagner MD - Last Filed: 06/25/25 08:48> Medical Decision Making MDM Narrative Medical decision making narrative: 60-year-old female with right lower quadrant abdominal pain. Does appear that the patient is indeed constipated with a large colonic fecal burden. Workup otherwise unremarkable. She does have a simple cysts of the left ovary which does not correspond to her area of discomfort. At this time recommend treatment for constipation including daily Colace and MiraLax. Follow-up with primary care as needed. <Adia Wagner MD - Last Filed: 06/25/25 08:48> Lab Data Lab results reviewed: Yes I reviewed the patient's lab results <Adia Wagner MD - Last Filed: 06/25/25 08:48> Labs: Lab Results 06/25/25 06/25/25 Range/Units 06:50 07:20 WBC 5.18 (4.50-11.00) K/uL RBC 4.17 (4.00-5.20) m/uL Hgb 12.8 (12.0-16.0) gm/dL Hct 38.8 (33.0-51.0) % MCV 93 (80-100) fL MCH 31 (26-34) pg MCHC 33 (32-36) gm/dL RDW Coeff of Jacki 11.7 (11.5-15.5) % Plt Count 175 (140-440) K/uL Neut % (Auto) 56.4 (42.0-72.0) % Lymph % (Auto) 27.2 (20-44) % [place] % (Auto) 11.2 H (0.0-11.0) % Eos % (Auto) 4.2 (0.0-7.0) % Baso % (Auto) 0.8 (0.0-3.0) % Neut # (Auto) 2.92 (1.7-7.0) K/uL Lymph # (Auto) 1.41 (0.90-2.90) K/uL [place] # (Auto) 0.60 (0.00-0.90) K/UL Eos # (Auto) 0.22 (0.00-0.50) K/uL Baso # (Auto) 0.04 (0.00-0.30) K/uL Abs Immat Gran (auto) 0.01 (0.00-0.30) K/uL Imm/Tot Granulo (auto) 0.2 % Sodium 139 (135-149) mmol/L Potassium 4.4 (3.6-5.1) mmol/L Chloride 106 (96-114) mmol/L Carbon Dioxide 24 (20-32) mmol/L Anion Gap 9 (7-15) mEq/L BUN 13 (7-30) mg/dL Creatinine 0.8 (0.5-1.5) mg/dL Estimated Creat Clear 58.84 Estimated GFR 83 ml/min Glucose 114 (60-115) mg/dL Lactate 1.3 (0.5-1.9) mmol/L Calcium 9.4 (8.4-10.6) mg/dL Total Bilirubin 0.3 (0.1-1.5) mg/dL AST 30 (12-35) U/L ALT 27 (4-35) U/L Alkaline Phosphatase 59 (40-150) U/L C-Reactive Protein < 0.5 L (0.5-1.0) mg/dL Total Protein 6.8 (6.0-8.3) g/dL Albumin 4.2 (3.3-5.0) g/dL Lipase 116 (23-300) U/L Urine Color Yellow (Yellow) Urine Appearance Clear (Clear) Urine pH 6.0 (5.0-8.5) Ur Specific [place] >= 1.030 (1.000-1.030) Urine Protein Trace A (Negative) Urine Glucose (UA) Negative (Negative) Urine Ketones Negative (Negative) Urine Blood Negative (Negative) Urine Nitrite Negative (Negative) Urine Bilirubin Negative (Negative) Urine Urobilinogen 0.2 (0.2-1.0) Ur Leukocyte Esterase 1+ A (Negative) Urine RBC 0-2 (0-2) Urine WBC 5-10 A (0-5) Ur Squamous Epith Cells Moderate A (None-Few) Urine Bacteria Moderate A (None) Urine Mucus Few A (None) <Nida Roberts MD - Last Filed: 06/26/25 00:02> Lab Results 06/25/25 06/25/25 Range/Units 06:50 07:20 WBC 5.18 (4.50-11.00) K/uL RBC 4.17 (4.00-5.20) m/uL Hgb 12.8 (12.0-16.0) gm/dL Hct 38.8 (33.0-51.0) % MCV 93 (80-100) fL MCH 31 (26-34) pg MCHC 33 (32-36) gm/dL RDW Coeff of Jacki 11.7 (11.5-15.5) % Plt Count 175 (140-440) K/uL Neut % (Auto) 56.4 (42.0-72.0) % Lymph % (Auto) 27.2 (20-44) % [place] % (Auto) 11.2 H (0.0-11.0) % Eos % (Auto) 4.2 (0.0-7.0) % Baso % (Auto) 0.8 (0.0-3.0) % Neut # (Auto) 2.92 (1.7-7.0) K/uL Lymph # (Auto) 1.41 (0.90-2.90) K/uL [place] # (Auto) 0.60 (0.00-0.90) K/UL Eos # (Auto) 0.22 (0.00-0.50) K/uL Baso # (Auto) 0.04 (0.00-0.30) K/uL Abs Immat Gran (auto) 0.01 (0.00-0.30) K/uL Imm/Tot Granulo (auto) 0.2 % Sodium 139 (135-149) mmol/L Potassium 4.4 (3.6-5.1) mmol/L Chloride 106 (96-114) mmol/L Carbon Dioxide 24 (20-32) mmol/L Anion Gap 9 (7-15) mEq/L BUN 13 (7-30) mg/dL Creatinine 0.8 (0.5-1.5) mg/dL Estimated Creat Clear 58.84 Estimated GFR 83 ml/min Glucose 114 (60-115) mg/dL Lactate 1.3 (0.5-1.9) mmol/L Calcium 9.4 (8.4-10.6) mg/dL Total Bilirubin 0.3 (0.1-1.5) mg/dL AST 30 (12-35) U/L ALT 27 (4-35) U/L Alkaline Phosphatase 59 (40-150) U/L C-Reactive Protein < 0.5 L (0.5-1.0) mg/dL Total Protein 6.8 (6.0-8.3) g/dL Albumin 4.2 (3.3-5.0) g/dL Lipase 116 (23-300) U/L Urine Color Yellow (Yellow) Urine Appearance Clear (Clear) Urine pH 6.0 (5.0-8.5) Ur Specific [place] >= 1.030 (1.000-1.030) Urine Protein Trace A (Negative) Urine Glucose (UA) Negative (Negative) Urine Ketones Negative (Negative) Urine Blood Negative (Negative) Urine Nitrite Negative (Negative) Urine Bilirubin Negative (Negative) Urine Urobilinogen 0.2 (0.2-1.0) Ur Leukocyte Esterase 1+ A (Negative) Urine RBC 0-2 (0-2) Urine WBC 5-10 A (0-5) Ur Squamous Epith Cells Moderate A (None-Few) Urine Bacteria Moderate A (None) Urine Mucus Few A (None) <Adia Wagner MD - Last Filed: 06/25/25 08:48> Imaging Data CT scan - abdomen: Attestation: I have reviewed the pertinent imaging results. <Adia Wagner MD - Last Filed: 06/25/25 08:48> Radiologist's impression: TECHNIQUE: Abdomen and pelvis CT was performed after the administration of intravenous contrast. IV contrast: 92 mL Isovue 370.. COMPARISON: : None. FINDINGS: Lower thorax: Subsegmental atelectasis/scarring in the right lower lobe. Liver: Unremarkable. Gallbladder/Biliary Tree: The gallbladder is surgically absent. No intrahepatic or extrahepatic biliary ductal dilatation. Pancreas: Unremarkable. Spleen: Unremarkable. Adrenal glands: Unremarkable. Kidneys/Ureters: Unremarkable. Urinary bladder: Unremarkable. Reproductive organs: The uterus is within normal limits. A 2.8 cm hypoattenuating left adnexal/ovarian cyst. Bowel/mesentery/peritoneum: No abnormally thickened or dilated loops of bowel. No evidence of pneumatosis, pneumoperitoneum, or free fluid. The appendix is not visualized, however there is no evidence of inflammation in the right lower abdomen. Moderate/large colonic fecal burden predominantly within the ascending colon. Abdominal vasculature: No abdominal aortic aneurysm. Ovarian vein embolization bilaterally. Lymph nodes: Unremarkable. Osseous structures and soft tissues: No acute or aggressive osseous lesions. . IMPRESSION: 1. No acute abdominal or pelvic process. 2. The appendix is not visualized with no evidence of inflammation in the right lower abdomen. 3. Moderate/large colonic fecal burden predominantly within the ascending colon. 4. A 2.8 cm simple appearing left adnexal/ovarian cyst. <Adia Wagner MD - Last Filed: 06/25/25 08:48> Discharge Plan Discharge Clinical Impression: Constipation, Abdominal pain <Nida Roberts MD - Last Filed: 06/26/25 00:02> Patient Disposition: Home, Self-Care <Nida Roberts MD - Last Filed: 06/26/25 00:02> Condition: Stable <Nida Roberts MD - Last Filed: 06/26/25 00:02> Instructions: Constipation (DC) <Nida Roberts MD - Last Filed: 06/26/25 00:02> Additional Instructions: Recommend starting with 2 scoops of daily MiraLax for a few days until bowel movements become more regular, then decreasing to 1 scoop daily. Also recommend taking Colace as directed to soft in the stool. Recommend returning to the emergency department if you develop vomiting or fevers. Follow-up with your primary care provider as needed. <Nida Roberts MD - Last Filed: 06/26/25 00:02> Prescriptions: No Action venlafaxine 37.5 mg capsule,extended release 24hr 37.5 mg PO DAILY famotidine 40 mg tablet 40 mg PO DAILY leflunomide 20 mg tablet 20 mg PO DAILY hydroxychloroquine 200 mg tablet 200 mg PO Q12H levothyroxine 112 mcg tablet 112 mcg PO DAILY rosuvastatin 10 mg tablet 10 mg PO QPM <Nida Roberts MD - Last Filed: 06/26/25 00:02> Follow Up/Referrals: Andreia Pires MD [Primary Care Provider, Family Practice] <Nida Roberts MD - Last Filed: 06/26/25 00:02> Stand Alone Forms: MyHealth Info Instructions <Nida Roberts MD - Last Filed: 06/26/25 00:02>
[2025-06-25 07:29] LABS: Lactate* 1.3 mmol/L (0.5-1.9)
[2025-06-25 07:33] LABS: Hematocrit* 38.8 % (33.0-51.0); Hemoglobin* 12.8 gm/dL (12.0-16.0); Immature Granulocytes Abs Auto 0.01 K/uL (0.00-0.30); Immature Granulocytes Pct Auto 0.2 %; Lymphocytes Absolute Auto 1.41 K/uL (0.90-2.90); Mean Corpuscular HGB Conc 33 gm/dL (32-36); Mean Corpuscular Hemoglobin 31 pg (26-34); Mean Corpuscular Volume 93 fL (80-100); RDW Coefficient of Variation % 11.7 % (11.5-15.5); Red Blood Count* 4.17 m/uL (4.00-5.20); White Blood Count* 5.18 K/uL (4.50-11.00)
--- NOTE | 2025-06-25 07:33 | CRLHL7_ITS ---
For Patients: As a result of the Century Cures Act, medical imaging exams and procedure reports are released immediately into your electronic medical record. You may view this report before your referring provider. If you have questions, please contact your health care provider. INDICATION: Right lower quadrant abdominal pain. TECHNIQUE: Abdomen and pelvis CT was performed after the administration of intravenous contrast. IV contrast: 92 mL Isovue 370.. COMPARISON: : None. FINDINGS: Lower thorax: Subsegmental atelectasis/scarring in the right lower lobe. Liver: Unremarkable. Gallbladder/Biliary Tree: The gallbladder is surgically absent. No intrahepatic or extrahepatic biliary ductal dilatation. Pancreas: Unremarkable. Spleen: Unremarkable. Adrenal glands: Unremarkable. Kidneys/Ureters: Unremarkable. Urinary bladder: Unremarkable. Reproductive organs: The uterus is within normal limits. A 2.8 cm hypoattenuating left adnexal/ovarian cyst. Bowel/mesentery/peritoneum: No abnormally thickened or dilated loops of bowel. No evidence of pneumatosis, pneumoperitoneum, or free fluid. The appendix is not visualized, however there is no evidence of inflammation in the right lower abdomen. Moderate/large colonic fecal burden predominantly within the ascending colon. Abdominal vasculature: No abdominal aortic aneurysm. Ovarian vein embolization bilaterally. Lymph nodes: Unremarkable. Osseous structures and soft tissues: No acute or aggressive osseous lesions. . IMPRESSION: 1. No acute abdominal or pelvic process. 2. The appendix is not visualized with no evidence of inflammation in the right lower abdomen. 3. Moderate/large colonic fecal burden predominantly within the ascending colon. 4. A 2.8 cm simple appearing left adnexal/ovarian cyst. Please note that all CT scans at this facility use dose modulation, iterative reconstruction, and/or weight-based dosing when appropriate to reduce radiation dose to as low as reasonably achievable. Dictated by Shawn Sorto MD @ 06/25/2025 8:34:05 AM (Electronically Signed)
[2025-06-25 07:41] LABS: Slide Review Reflex No
[2025-06-25 07:46] LABS: Chloride* 106 mmol/L (96-114)
[2025-06-25 07:47] LABS: Albumin* 4.2 g/dL (3.3-5.0); Potassium* 4.4 mmol/L (3.6-5.1); Sodium* 139 mmol/L (135-149)
[2025-06-25 07:49] LABS: Blood Urea Nitrogen* 13 mg/dL (7-30); Creatinine* 0.8 mg/dL (0.5-1.5); Est. Creatinine Clearance* 58.84; Estimated Glomerular Filt Rate 83 ml/min
[2025-06-25] MEDS: ONDANSETRON 2 MG/ML inj 4 MG IVP (07:49)
[2025-06-25 07:50] LABS: Alanine Aminotransferase* 27 U/L (4-35); Alkaline Phosphatase* 59 U/L (40-150); Anion Gap 9 mEq/L (7-15); Aspartate Amino Transferase* 30 U/L (12-35); Bilirubin Total* 0.3 mg/dL (0.1-1.5); Calcium* 9.4 mg/dL (8.4-10.6); Carbon Dioxide* 24 mmol/L (20-32); Glucose* 114 mg/dL (60-115); Total Protein* 6.8 g/dL (6.0-8.3)
== END 2025-06-25 08:59 | disposition home or self-care (01) ==
PROVIDERS: Family Medicine; Emergency Provider Family Medicine; PCP Family Medicine
DX: K59.00 Constipation, unspecified (principal)
CPT/HCPCS: 36415; 74177; 80053; 81001; 81003; 83605; 83690; 85025; 86140; 87086; 96374; 96375; 99284; J1171; J2405; Q9967